=== PATIENT | female | born 1995 | race Two or more races ===

== ENCOUNTER 2016-05-02 09:22 | Emergency (ER) | payer OTHER ==
[2016-05-02] MEDS ORDERED: ACETAMINOPHEN 500 MG TAB PO ONE (09:44)
[2016-05-02 09:46] VITALS: BP 100/63; PULSE 108; RESP 16; O2SAT 98
--- NOTE | 2016-05-02 10:12 | UCPHY ---
H & P Time Seen by Provider: 05/02/16 09:45 Patient Type: New HPI/ROS: HPI Sore throat, fever. 20-year-old female by private vehicle with mother. Patient complains of sore throat fever and congestion over the last 2-3 days. No voice changes. No stridor. Able to swallow liquids but more pain with swallowing. ROS: Constitutional: As above, no chills. No weakness. Eyes: No discharge. No changes in vision. ENT: As above. Respiratory: No cough. No shortness of breath. Cardiac: No chest pain, no palpitations. Gastrointestinal: No abdominal pain, no vomiting, no diarrhea. Musculoskeletal: No back pain. No neck pain. As above. Skin: No rashes. Neurological: No headache. No focal weakness or altered sensation. Past medical history: None. Social history: Here with her mother. Physical Exam: General Appearance: Alert, no distress. This patient is responding to questions appropriately and in full sentences. This patient appears well- hydrated and well-nourished. Eyes: Pupils equal and round no pallor or injection. No lid edema, erythema or injection. ENT, Mouth: Mucous membranes are moist. Diffuse pharyngeal erythema present. Mild pharyngeal edema. No asymmetry to suggest abscess. Scant exudates on both tonsils. Respiratory: There are no retractions, lungs are clear to auscultation with good air movement bilaterally. Cardiovascular: Regular rate and rhythm. No murmur. Neurological: Motor sensory function is grossly intact. Cranial nerves are normal. Gait is normal. Skin: Warm and dry, no rashes. Musculoskeletal: Neck is supple and nontender. No significant cervical lymphadenopathy. Extremities are symmetrical. All joints range without pain or impingement. Psychiatric: No agitation. No depression. Database: Rapid strep-negative. Influenza-negative. EKG: Imaging: Procedures: Emergency department course: After my evaluation, the patient was given 600 mg of ibuprofen. 10:15 a.m., patient re-evaluated. Results of rapid strep and influenza assays discussed with her and her mother. I recommended high-dose ibuprofen for the next 3 days , rest and oral hydration. They feel comfortable with this plan. Follow-up and return to Urgent Care precautions discussed with her. All of her questions were answered. She was discharged in good condition. Differential Diagnosis: The differential diagnosis on this patient includes but is not limited to viral pharyngitis, viral syndrome. Streptococcal pharyngitis, influenza, retropharyngeal abscess, peritonsillar abscess, tracheitis, epiglottitis unlikely. This represents a partial list of diagnoses considered. These considerations are based on history, physical exam, past history, reassessment and diagnostic testing. Smoking Status: Never smoked Constitutional: Initial Vital Signs Temperature (C) 37.9 C 05/02/16 09:43 Heart Rate 108 H 05/02/16 09:43 Respiratory Rate 16 05/02/16 09:43 Blood Pressure 100/63 05/02/16 09:43 O2 Sat (%) 98 05/02/16 09:43 O2 Delivery Mode Room Air Allergies/Adverse Reactions: No Known Allergies Allergy (Verified 05/02/16 09:43) Home Medications: Medication Instructions Recorded MIRENA 05/02/16 Medical Decision Making - Data Points Laboratory Results: 05/02/16 05/02/16 05/02/16 Unknown 09:50 09:44 Influenza Typ A,B (DFA) NEGATIVE FOR FLU (NEGATIVE) Group A Strep Screen NEGATIVE (NEGATIVE) Group A Strep DNA Pending Medications Given: Discontinued Medications Acetaminophen (Tylenol) 1,000 mg PO EDNOW ONE Stop: 05/02/16 09:45 Last Admin: 05/02/16 09:52 Dose: 1,000 mg Departure - Departure Disposition: Home, Routine, Self-Care Clinical Impression: Pharyngitis, Viral infection Condition: Good Instructions: Pharyngitis (ED) Additional Instructions: Read and follow provided instructions. Follow-up with your primary care physician in 1-2 days for re-evaluation. Ibuprofen dosin mg every 6 hours with meals for the next 3 days only. Return to the emergency department for worsening pain, difficulty swallowing, voice changes or other serious concerns. Referrals: Baldomero Gandara MD [Primary Care Provider] - As per Instructions Stand Alone Forms: Work Excuse - PQRS PQRS Measurement: Not applicable
[2016-05-02 10:22] VITALS: TEMP 99.9
== END 2016-05-02 10:17 | disposition home or self-care (01) ==
LOC: CED 09:22
DX: J02.9 Acute pharyngitis, unspecified (principal)
CPT/HCPCS: 87400-PO; 87880-PO; 99203-PO; G0463-PO